=== PATIENT | female | born 1980 ===

== ENCOUNTER 2018-06-05 08:48 | Inpatient (IN) | payer MEDICAID, OTHER ==
[2018-06-05 09:09] VITALS: BMI 34.2
[2018-06-05] MEDS ORDERED: ceFAZolin IV 2 gm in Dextrose 2 GM/50 ML BAG IVPB ONE (09:09)
[2018-06-05] MEDS ORDERED: Lactated Ringer's 1,000 ML IV ONE (09:09)
[2018-06-05 09:44] LABS: BASO # 0.1 K/uL (0.0-0.2); BASO % 1.4 % (0.0-2.0); EOS % 0.4 % (0.0-4.0); HEMOGLOBIN 13.2 g/dL (12.0-16.0); LYMPH # 2.8 K/uL (1.0-4.3); MEAN CELL VOLUME 87.4 fl (81.0-99.0); MEAN CORPUSCULAR HEMOGLOBIN 29.7 pg (27.0-31.0); MEAN PLATELET VOLUME 11.4 fl (7.2-11.7); MONO # 0.6 K/uL (0.0-0.8); MONO % 5.9 % (0.0-10.0); NEUT % 66.3 % (50.0-75.0); NRBC % 0.2 % (0.0-0.0); RBC 4.46 Mil/uL (3.80-5.20); WHITE BLOOD COUNT 10.6 K/uL (4.8-10.8)
[2018-06-05] MEDS ORDERED: Oxytocin 30 UNIT 30 UNITS/500 ML BAG IV ONE (10:02)
[2018-06-05] MEDS ORDERED: OXYTOCIN/0.9 % NS 20 UNIT/1,000 ML BAG IV SCH (10:15)
[2018-06-05] MEDS ORDERED: ePHEDrine 50 mg/ml Inj ONE (10:52)
[2018-06-05] MEDS ORDERED: Morphine 1 mg/ml preservative-free Inj(Duramorph) ONE (10:52)
--- NOTE | 2018-06-05 22:10 | OBADHP ---
Datetime: 06/05/2018 10:05 Admit Comment, IP Provider: HPI: Casie is a 37 year old at 38.5 who presents to triage with c omplaints of a gush if fluid this morning as well as mild uterine cramping that began early this morn ing. She has a history of 2 previous C-sections with her repeat scheduled for June 07. Her cramping pain is mild but regular every 5-8 minutes. She noticed a small amount of blood tinged f luid this morning and then had a larger amount of clear fluid that ran down her leg around 8am. Repo rts good movement. ROS: as above, otherwise negative history: 2 previous full term C-sections, first was in 2008 and the second was in 2010. Planned for a repea t for this . PMH: Denies PSH: previous x2, otherwise denies Medications: PNV Allergies: NKDA Objective For PE section for more information Labs: pending CBC Assessment/Plan: 37 yo at 38.5 weeks here with ruptured membranes and likely latent labor. Pl anned for a repeat at 39 weeks. - We will proceed to repeat today due to her rupture of membranes - Stat CBC and type and screen ordered - Patient will also be consented for bilateral tubal ligation Frances Jennings MD OB Fellow Abdomen - PN: Normal Lungs - PN: Normal Heart - PN: Normal HEENT - PN: Normal General - PN: Normal FHR - Baseline A Provider: 130 Comments, ACOG Physical Exam: Vaginal exam: gross pooling of fluid seen by nursing, on my exam there was a small amount of clear fluid seen, cervix was fingertip and long Gestation - Est Wks by US: 38.5 IP Chief Complaint: Uterine contractions; Suspected ruptured membranes NICHD Variability Prov Fetus A: Moderate 6-25bpm NICHD Accel Fetus A IP Provider: [id number] FHR Category Provider Fetus A: Category I NICHD Decel Fetus A IP Provider: None EGA AdmitDate IP: 38.5 IP Adm Impression: Term, intrauterine ; Ruptured Membranes IP Admit Plan: Admit to unit; Initiate Section protocol
--- NOTE | 2018-06-05 22:15 | OBDS ---
DELIVERY PERSONNEL Delivery Doctor: Alverto Jarrell MD Mangle Catcher: KENDRICK Cabrera Anesthesiologist: Brina Mcadams MD Resident: Frances Jennings MATERNAL INFORMATION Delivery Anesthesia: Spinal Medications in Delivery: Pitocin Estimated Blood Loss (ml): 800 Placenta Cultured: No Maternal Complications: None Provider Comments: Repeat low flap transverse section via Pfannenstiel incision. Patient de livered viable infant with Apgars of 9 and 9 at one and 5 minutes respectively. Normal uterus, normal tubes and ovaries bilaterally. Moderate to severe amount of pelvic and abdominal adhesions. Estimated blood loss 800 mL fluids 1200 mL lactated Ringer's urine output 400 mL of clear urine No complications LABOR SUMMARY EDC: 06/14/2018 00:00 No. Babies in Womb: 1 LABOR INFORMATION Onset of Labor: 06/05/2018 07:00 Group B Beta Strep: Negative Steroids Given: None Reason Steroids Not Administered: Not Applicable MEMBRANES Membranes Rupture Method: Spontaneous Rupture of Membranes: 06/05/2018 07:00 Length of Rupture (hrs): 5.07 Amniotic Fluid Color: Clear Amniotic Fluid Amount: Moderate Amniotic Fluid Odor: Normal STAGES OF LABOR Stage 3 hrs: 0 Stage 3 min: 0 Total Time in Labor hrs: 5 Total Time in Labor min: 4 VAGINAL DELIVERY Laceration Repair: Not Applicable CSECTION DELIVERY Primary Indication: Repeat Elective CSection Urgency: Elective CSection Incidence: Repeat Labor: Labor Elective: Elective CSection Incision: Lower Uterine Transverse Other Sterilization Procedure: Bilateral tubal ligation, bilateral salpingectomy BABY A INFORMATION Delivery Date/Time: 06/05/2018 12:04 Method of Delivery: : N/A Forceps: N/A Vacuum Extraction: N/A Shoulder Dystocia : No SHOULDER DYSTOCIA BABY A Infant Delivery Date/Time: 06/05/2018 12:04 PRESENTATION/POSITION BABY A Presentation: Cephalic Breech Presentation: N/A PLACENTA INFORMATION BABY A Placenta Delivery Time : 06/05/2018 12:04 Placenta Method of Delivery: Spontaneous removal Placenta Status: Delivered SCORES BABY A Heart Rate 1 min: >100 bpm Resp Effort 1 min: Good Cry Reflex Irritability 1 min: Cough or Sneeze or Pulls Away Muscle Tone 1 min: Active Motion Color 1 min: Body [place], Extremities Blue SCORE 1 MIN: 9 Heart Rate 5 min: >100 bpm Resp Effort 5 min: Good Cry Reflex Irritability 5 min: Cough or Sneeze or Pulls Away Muscle Tone 5 min: Active Motion Color 5 min: Body [place], Extremities Blue SCORE 5 MIN: 9 INFORMATION BABY A Gestational Age at Delivery: 38.0 Gestational Status: Term Infant Outcome : Liveborn Condition : Stable Infant Sex: Male IDENTIFICATION/MEDS BABY A ID Band Number: [id number] ID Band Location: Left Leg; Left Arm WEIGHT/LENGTH BABY A Birthweight (gms): 3235 Infant Weight (lb): 7 Infant Weight (oz): 2 CORD INFORMATION BABY A No. Cord Vessels: 3 Nuchal Cord : N/A ASSESSMENT BABY A Complications: None Physical Findings at Delivery: Within Normal Limits Infant Respirations: Appears Normal Furnace Firer/ALS Called : No Infant Care By: dr Retana Transferred To: Remains with Mother
--- NOTE | 2018-06-05 22:18 | OBDS ---
DELIVERY PERSONNEL Delivery Doctor: Alverto Jarrell MD Cytology Technologist: KENDRICK Cabrera Anesthesiologist: Brina Mcadams MD Resident: Frances Jennings MATERNAL INFORMATION Delivery Anesthesia: Spinal Medications in Delivery: Pitocin Estimated Blood Loss (ml): 800 Placenta Cultured: No Maternal Complications: None Provider Comments: Repeat low flap transverse section via Pfannenstiel incision. Patient de livered viable infant with Apgars of 9 and 9 at one and 5 minutes respectively. Normal uterus, normal tubes and ovaries bilaterally. Moderate to severe amount of pelvic and abdominal adhesions. Estimated blood loss 800 mL fluids 1200 mL lactated Ringer's urine output 400 mL of clear urine No complications LABOR SUMMARY EDC: 06/14/2018 00:00 No. Babies in Womb: 1 LABOR INFORMATION Onset of Labor: 06/05/2018 07:00 Group B Beta Strep: Negative Steroids Given: None Reason Steroids Not Administered: Not Applicable MEMBRANES Membranes Rupture Method: Spontaneous Membranes Rupture Method: Spontaneous Rupture of Membranes: 06/05/2018 07:00 Rupture of Membranes: 06/05/2018 07:00 Length of Rupture (hrs): 5.07 Length of Rupture (hrs): 5.07 Amniotic Fluid Color: Clear Amniotic Fluid Color: Clear Amniotic Fluid Amount: Moderate Amniotic Fluid Amount: Moderate Amniotic Fluid Odor: Normal Amniotic Fluid Odor: Normal STAGES OF LABOR Stage 3 hrs: 0 Stage 3 min: 0 Total Time in Labor hrs: 5 Total Time in Labor min: 4 VAGINAL DELIVERY Laceration Repair: Not Applicable CSECTION DELIVERY Primary Indication: Repeat Elective CSection Urgency: Elective CSection Incidence: Repeat Labor: Labor Elective: Elective CSection Incision: Lower Uterine Transverse Other Sterilization Procedure: Bilateral tubal ligation, bilateral salpingectomy BABY A INFORMATION Infant Delivery Date/Time: 06/05/2018 12:04 Method of Delivery: : N/A Forceps: N/A Vacuum Extraction: N/A Shoulder Dystocia : No SHOULDER DYSTOCIA BABY A Infant Delivery Date/Time: 06/05/2018 12:04 PRESENTATION/POSITION BABY A Presentation: Cephalic Breech Presentation: N/A PLACENTA INFORMATION BABY A Placenta Delivery Time : 06/05/2018 12:04 Placenta Method of Delivery: Spontaneous removal Placenta Status: Delivered SCORES BABY A Heart Rate 1 min: >100 bpm Resp Effort 1 min: Good Cry Reflex Irritability 1 min: Cough or Sneeze or Pulls Away Muscle Tone 1 min: Active Motion Color 1 min: Body [place], Extremities Blue SCORE 1 MIN: 9 Heart Rate 5 min: >100 bpm Resp Effort 5 min: Good Cry Reflex Irritability 5 min: Cough or Sneeze or Pulls Away Muscle Tone 5 min: Active Motion Color 5 min: Body [place], Extremities Blue SCORE 5 MIN: 9 INFANT INFORMATION BABY A Gestational Age at Delivery: 38.0 Gestational Status: Term Infant Outcome : Liveborn Infant Condition : Stable Sex: Male IDENTIFICATION/MEDS BABY A ID Band Number: [id number] ID Band Location: Left Leg; Left Arm WEIGHT/LENGTH BABY A Infant Birthweight (gms): 3235 Weight (lb): 7 Weight (oz): 2 CORD INFORMATION BABY A No. Cord Vessels: 3 Nuchal Cord : N/A ASSESSMENT BABY A Complications: None Physical Findings at Delivery: Within Normal Limits Infant Respirations: Appears Normal Mammalogy Teacher/ALS Called : No Infant Care By: dr Retana Transferred To: Remains with Mother
[2018-06-06] MEDS: Oxycodone/Acetaminophen 5/325 mg Tab PO PRN ×3 (06:16→22:34)
[2018-06-06 07:10] LABS: MEAN CORPUSCULAR HEMOGLOBIN 30.3 pg (27.0-31.0); MEAN CORPUSCULAR HGB CONC 34.8 g/dL (33.0-37.0); RBC 3.63 Mil/uL (3.80-5.20); RED CELL DISTRIBUTION WIDTH 14.4 % (11.5-14.5); WHITE BLOOD COUNT 11.4 K/uL (4.8-10.8)
--- NOTE | 2018-06-06 07:31 | OBPPN ---
Datetime: 06/06/2018 07:26 PP Pain Prov: Within normal limits PP Nausea Prov: Denies PP Flatus Prov: Yes PP BM Prov: No PP Abdomen/Uterus Prov: Normal PP Lochia Prov: Normal PP Extremities Prov: Normal PP C/S Incision Prov: Normal PP Progress Prov: Normal PP Comments Phys Exam Prov: Incision w/ bandage in place PP Impression Prov: Normal progression PP Plan Prov: Continue present management PP Progress Note Prov: POD 1 s/p repeat c/s, doing well, breast and bottle feeding OOB today Advance diet as tolerated Vital Signs Provider PP: Reviewed
[2018-06-07] MEDS: Oxycodone/Acetaminophen 5/325 mg Tab PO PRN ×4 (05:19→23:54)
--- NOTE | 2018-06-07 11:17 | OBPPN ---
Datetime: 06/07/2018 11:15 PP Pain Prov: Within normal limits PP Nausea Prov: Denies PP Flatus Prov: Yes PP Breasts Prov: Normal PP Heart Prov: Normal PP Lungs Prov: Normal PP Abdomen/Uterus Prov: Normal PP Lochia Prov: Normal PP Vulva/Perineum Prov: Normal PP CVA Tenderness Prov: Normal PP Extremities Prov: Normal PP Comments Phys Exam Prov: FUndus firm under umbilicus Incision clean/dry/intact PP Impression Prov: Normal progression PP Plan Prov: Continue present management PP Progress Note Prov: Patient denies CP, no SOB, no N/V, tolerating PO diet, ambulating/voiding wel l, mild lochia, abdominal pain tolerable with meds, +flatus A/P POD #2 1. continue orders 2. Percocet/Motrin prn pain 3. Encourage ambulation/ IP PP Procedures: None Vital Signs Provider PP: Reviewed; Within Normal Limits
[2018-06-08] MEDS: Oxycodone/Acetaminophen 5/325 mg Tab PO PRN (04:07)
--- NOTE | 2018-06-08 10:23 | OBDCSUM ---
Datetime: 06/08/2018 10:21 Discharged to, Provider: Home Follow up at, Provider: [facility] Disch Instr Activity: Normal activity Disch Instr Diet: Regular Discharge Instructions, Provider: Routine instructions given Discharge Diagnosis, Provider: Term Delivered Follow up in weeks, Provider: 1-2w Disch Referrals: None Contraception discussed, Prov: Yes
--- NOTE | 2018-06-08 10:23 | OBPPN ---
Datetime: 06/08/2018 10:20 PP Pain Prov: Within normal limits PP Nausea Prov: Denies PP Flatus Prov: Yes PP BM Prov: Yes PP Breasts Prov: Normal PP Heart Prov: Normal PP Lungs Prov: Normal PP Abdomen/Uterus Prov: Normal PP Lochia Prov: Normal PP Vulva/Perineum Prov: Normal PP CVA Tenderness Prov: Normal PP Extremities Prov: Normal PP C/S Incision Prov: Normal PP Progress Prov: Normal PP Impression Prov: Normal progression PP Plan Prov: Discharge PP Progress Note Prov: She wants Motrin prior to discharge. Othewise she feels fine +BM A; S/P C-S day 3 Discharge home and follow up in 1-2w Vital Signs Provider PP: Reviewed
[2018-06-08 18:07] VITALS: BP 124/76; PULSE 82; RESP 20; TEMP 98.6; O2SAT 97
== END 2018-06-08 13:35 | disposition home or self-care (01) | DRG 371 ==
LOC: H.EROB2 08:48 → H.L&D 09:15 → H.OB/GYN 17:59
PROVIDERS: ADMIT Obstetrics & Gynecology; ATTEND Obstetrics & Gynecology
PROC: 10D00Z1 Extraction of Products of Conception, Low, Open Approach (ICD-10-PCS; principal; 2018-06-05)
PROC: 0UB70ZZ Excision of Bilateral Fallopian Tubes, Open Approach (ICD-10-PCS; 2018-06-05)
PROC: 4A1HXCZ Monitoring of Products of Conception, Cardiac Rate, External Approach (ICD-10-PCS; 2018-06-05)
DX: O34.211 Maternal care for low transverse scar from previous cesarean delivery (principal); O99.89 Other specified diseases and conditions complicating pregnancy, childbirth and the puerperium; N73.6 Female pelvic peritoneal adhesions (postinfective); Z3A.38 38 weeks gestation of pregnancy; Z37.0 Single live birth; Z30.2 Encounter for sterilization; O09.523 Supervision of elderly multigravida, third trimester